=== PATIENT | female | born 1995 | race Caucasian/White ===

== ENCOUNTER 2017-04-10 21:02 | Emergency (ER) | payer OTHER ==
[~2017-04-10] VITALS: Ht 170.2 cm; Wt 62.9 kg
[~2017-04-10 21:02] MED LIST: BCPILLS PO
[2017-04-10 21:10] VITALS: TEMP 36.7; Ht 170.2 cm; Wt 62.9 kg
[2017-04-10] MEDS ORDERED: HYDROCODONE/ACETAMOPHEN 5/325MG TAB PO ONE (21:45)
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
[2017-04-10] MEDS ORDERED: CYCL10TA6 PO (22:42)
[2017-04-10] MEDS ORDERED: HYDR-5688 PO (22:42)
[2017-04-10] MEDS ORDERED: FLEXERIL HOME PACK 10 MG VIAL PO ONE (22:45)
[2017-04-10] MEDS ORDERED: NORCO 5/325MG HOME PACK PO ONE (22:45)
[2017-04-10] MEDS ORDERED: ULT/50 PO (22:52)
[2017-04-10] MEDS ORDERED: TRAMADOL HCL 50 MG HOME PACK PO ONE (23:00)
[2017-04-10 23:04] VITALS: BP 138/89; PULSE 85; O2SAT 98
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
== END 2017-04-10 23:05 | disposition home or self-care (01) ==
LOC: C.EDB 21:05 → C.EDD 23:05
DX: M54.2 Cervicalgia (principal); V43.62XA Car passenger injured in collision with other type car in traffic accident, initial encounter; F17.200 Nicotine dependence, unspecified, uncomplicated; Z88.0 Allergy status to penicillin; Z88.1 Allergy status to other antibiotic agents

== ENCOUNTER 2017-12-27 09:12 | Inpatient (IN) | payer OTHER ==
[~2017-12-27] VITALS: Ht 167.6 cm; Wt 67.3 kg
[2017-12-27] MEDS ORDERED: OXYCODONE/ACETAMINOPHEN 5-325 TAB PO STA (10:23)
[2017-12-27] MEDS ORDERED: KETOROLAC TROMETHAMINE 30 MG/ML VIAL IV STA (10:23)
--- NOTE | 2017-12-27 10:28 | EMERGENCY ROOM VISIT NOTE ---
History Report prepared by Jil: Glenn Fleming Under the Supervision of: Dr. Leatha Chapman D.O. First contact with patient: 09:58 Chief Complaint: INFECTION Stated Complaint: ABCESS ON CHIN Nursing Triage Summary: started with a pimple on wednesday. placed on antibiotics for the past 24 hrs. right side of jaw swollen and painful History of Present Illness The patient is a 22 year old female who presents to the Emergency Room with complaints of a possible infection to her chin that began three days ago. She denies any known past medical history and has never had a skin infection. The patient symptoms began when she tried to pop a pimple on her chin. She fell asleep for some time and when she woke up, the right of her face was swollen. The area to her chin and right lower face then felt quite hard. She then began to experience pain to the area. She is also having pain upon swallowing. She went to [facility] and was placed on Keflex. She has been taking Ibuprofen as well to try to control her pain. She denies any fevers, chills, cough, or sore throat. Source of History: patient Onset: three days ago Position: other (Chin) Symptom Intensity: Possible Quality: other (Infection) Timing: constant Associated Symptoms: No fevers, No chills, No sorethroat, No cough Note: She is experiencing right sided lower facial swelling with pain to her chin and this area. She is having pain upon swallowing. Review of Systems See HPI for pertinent positives & negatives. A total of 10 systems reviewed and were otherwise negative. Past Medical & Surgical Medical Problems: (1) Anxiety (2) Depression No chronic past medical history Family History Patient reports no known family medical history. Social History Smoking Status: Current Some Day Smoker Smokeless Tobacco Use: No Alcohol Use: occasionally Drug Use: none Marital Status: single Housing Status: lives with family Current/Historical Medications Scheduled Cephalexin Monohydrate (Keflex), 500 MG PO TID Duloxetine Hcl (Cymbalta), 60 MG PO QAM Norgestimate-Ethinyl Estradiol (Ortho Tri-Cyclen Lo), 1 TAB PO DAILY Sulfa/Trimethoprim (Bactrim Ds 800MG/160MG), 1 TAB PO BID Allergies Coded Allergies: Amoxicillin (Unverified Allergy, Intermediate, rash, 12/27/17) Penicillins (Unverified Allergy, Mild, 12/27/17) Hydrocodone (Verified Allergy, Unknown, rash/itchy, 12/27/17) Physical Exam Vital Signs Date Time Temp Pulse Resp B/P (MAP) Pulse Ox O2 Delivery O2 Flow Rate FiO2 12/27/17 13:37 76 16 150/90 98 Room Air 12/27/17 11:05 76 16 136/95 98 Room Air 12/27/17 09:16 36.7 102 18 126/88 96 Room Air Physical Exam HEENT: Head - normocephalic and atraumatic. Diffuse aches. There is an infected carbuncle to the right chin with surrounding cellulitis extending over the anterior neck. Pupils are equal, round, and reactive to light. Extraocular eye muscles are intact, and sclera are anicteric. Ears - normal TMs. Nose - moist nasal mucosa without discharge. Mouth - moist buccal mucosa. Oropharynx is nonerythematous and there is no tonsillar exudate or edema noted. Neck: Supple with fullness to the submental region; no JVD, nuchal rigidity, cervical lymphadenopathy. Heart: Regular rate and rhythm. There is a normal S1 and S2 with no murmurs, clicks, or gallops appreciated. Lungs: Clear to auscultation bilaterally with no wheezes, rales, or rhonchi. Abdomen: Soft, completely nontender, nondistended, with good bowel sounds. There are no palpable pulsatile masses or hepatosplenomegaly. There is no guarding, rigidity, or rebound noted. Extremities: No evidence of cyanosis, clubbing, or edema. There are easily palpable peripheral pulses. Skin: warm and dry with good turgor and no rashes. Medical Decision & Procedures ER Provider Diagnostic Interpretation: Radiology results as stated below per my review and the radiologist's interpretation: SOFT TISSUE NECK WITH HISTORY: 22 years-old Female eval for ludwigs - please go up through chin acute chest and swelling with mandibular abscess COMPARISON: Cervical spine CT 04/10/2017 TECHNIQUE: Multiple axial CT images of the soft tissues of the neck were obtained following the intravenous administration of 94 mL Optiray 320 IV contrast. A dose lowering technique was used consistent with the principals of ALARA. FINDINGS: There is mild to moderate sob mental and right mandibular subcutaneous edema with skin thickening with ill-defined low attenuating collection measuring 2.2 x 1.5 cm adjacent to the right parasymphyseal mandible nicely seen on image 51 series 2 without well-defined ray or opaque foreign body. There is mild subcutaneous edema tracking along the platysma musculature with minimal edema of the submandibular region. No significant edema within the sublingual space. No narrowing of the airway identified. Mildly prominent level 1 lymph nodes measure up to 9 mm in short axis. Mildly prominent level 2 lymph nodes are also seen and likely on a reactive basis. The bilateral submandibular and parotid glands are within normal limits. The nasopharynx, oral pharynx and hypopharynx appear patent. The vallecula and piriform sinuses appear patent. The glottis and subglottic airway appear normal. Thyroid is homogeneous. No parapharyngeal abscess. Lung apices are clear. Image intracranial structures are unremarkable. Bones appear intact. Mastoid air cells are clear. No significant paranasal sinus disease. No large periapical cysts or dental abscess identified. IMPRESSION: 1. 2.2 x 1.5 cm ill-defined low attenuating collection adjacent to the right parasymphyseal mandible suggests phlegmon or developing abscess without well-defined ray. Mild to moderate associated cellulitis of the right mandibular and submental tissues with mild edema tracking along the submandibular space. No significant mass effect or sublingual edema. 2. Mildly prominent level 1 and level 2 lymph nodes are likely on a reactive basis. 3. No large periapical cysts or dental abscess identified. The above report was generated using voice recognition software. It may contain grammatical, syntax or spelling errors. Electronically signed by: Pranay Whitmore M.D. 12/27/2017 12:19 PM Dictated Date/Time: 12/27/2017 12:11 PM Laboratory Results 12/27/17 10:55 Red Blood Count 4.21, Mean Corpuscular Volume 94.8, Mean Corpuscular Hemoglobin 32.3, Mean Corpuscular Hemoglobin Concent 34.1, Mean Platelet Volume 11.2, Neutrophils (%) (Auto) 74.3, Lymphocytes (%) (Auto) 15.9, Monocytes (%) (Auto) 5.1, Eosinophils (%) (Auto) 3.9, Basophils (%) (Auto) 0.5, Neutrophils # (Auto) 9.06, Lymphocytes # (Auto) 1.94, Monocytes # (Auto) 0.62, Eosinophils # (Auto) 0.47, Basophils # (Auto) 0.06 12/27/17 10:55 Test 12/27/17 10:55 12/27/17 11:06 White Blood Count 12.19 K/uL (4.8-10.8) Red Blood Count 4.21 M/uL (4.2-5.4) Hemoglobin 13.6 g/dL (12.0-16.0) Hematocrit 39.9 % (37-47) Mean Corpuscular Volume 94.8 fL (80-100) Mean Corpuscular Hemoglobin 32.3 pg (25-34) Mean Corpuscular Hemoglobin Concent 34.1 g/dl (32-36) Platelet Count 244 K/uL (130-400) Mean Platelet Volume 11.2 fL (7.4-10.4) Neutrophils (%) (Auto) 74.3 % Lymphocytes (%) (Auto) 15.9 % Monocytes (%) (Auto) 5.1 % Eosinophils (%) (Auto) 3.9 % Basophils (%) (Auto) 0.5 % Neutrophils # (Auto) 9.06 K/uL (1.4-6.5) Lymphocytes # (Auto) 1.94 K/uL (1.2-3.4) Monocytes # (Auto) 0.62 K/uL (0.11-0.59) Eosinophils # (Auto) 0.47 K/uL (0-0.5) Basophils # (Auto) 0.06 K/uL (0-0.2) RDW Standard Deviation 42.0 fL (36.4-46.3) RDW Coefficient of Variation 12.4 % (11.5-14.5) Immature Granulocyte % (Auto) 0.3 % Immature Granulocyte # (Auto) 0.04 K/uL (0.00-0.02) Anion Gap 9.0 mmol/L (3-11) Est Creatinine Clear Calc Drug Dose 100.7 ml/min Estimated GFR () 117.7 Estimated GFR (Non- 101.6 BUN/Creatinine Ratio 15.5 (10-20) Calcium Level 9.4 mg/dl (8.5-10.1) Bedside Lactic Acid Venous 0.91 mmol/L (0.90-1.70) Laboratory results per my review. Medications Administered Medications (Trade) Dose Ordered Sig/Cheryl Route Start Time Stop Time Status Last Admin Dose Admin Ketorolac Tromethamine (Toradol Inj) 30 mg NOW STAT IV 12/27/17 10:23 12/27/17 10:26 DC 12/27/17 11:29 30 MG Oxycodone/ Acetaminophen (Percocet 5-325mg Tab) 1 tab NOW STAT PO 12/27/17 10:23 12/27/17 10:26 DC 12/27/17 11:29 1 TAB Vancomycin HCl 1000 mg/Sodium Chloride 270 ml @ 125 mls/hr NOW STAT IV 12/27/17 12:38 12/27/17 14:47 DC 12/27/17 12:52 125 MLS/HR Hydromorphone HCl (Dilaudid Inj) 0.5 mg NOW STAT IV 12/27/17 12:52 12/27/17 12:54 DC 12/27/17 13:03 0.5 MG Procedure Oxycodone/Acetaminophen 1 tab PO Toradol Inj 30 mg IV Vancomycin HCl 1000 mg/Sodium Chloride 270 ml @ 125 mls/hr IV Dilaudid Inj 0.5 mg IV ED Course 0958: Past medical records reviewed. The patient was evaluated in room C8. A complete history and physical exam was performed. A septic protocol was performed. The patient went for CT scan and of the soft tissues of the neck up through the chin. 1023: Ordered Oxycodone/Acetaminophen 1 tab PO, Toradol Inj 30 mg IV. 1238: Ordered Vancomycin HCl 1000 mg/Sodium Chloride 270 ml @ 125 mls/hr IV 1246: I reevaluated the patient at this time. She is still having pain. I will order her pain medications. She is receiving her Vancomycin. 1252: Ordered Dilaudid Inj 0.5 mg IV 1257: Upon reevaluation, the patient is feeling somewhat better. I discussed findings and results with her. She verbalized agreement of the treatment plan. I spoke with Sharon Marcus PA-C of the [facility]. The patient will be evaluated for further management and care. 1350: Upon reevaluation, the patient has started to feel mildly itchy after receiving the Dilaudid. Medical Decision The patient is a 22 year old female who presents to the ED with a possible infection to her chin. Differential diagnosis includes facial abscess, facial cellulitis, Xu's angina, neck abscess, and wound infection. Laboratory Results: White blood cell count 12.1, stable H&H, lactic acid 0.9, normal renal function and glucose. This is a 22-year-old female patient presents to the emergency department with a wound infection on her chin. The patient suffers from acne and apparently tried to pop a pimple. It became quite painful with some surrounding erythema and swelling through the right side of her face. She saw her PCP and they started her on Bactrim and Keflex but the symptoms have worsened. She now has erythema over the submental region and anterior neck with significant pain in that area. CT scan shows a small fluid collection on the chin but edema and erythema suggesting cellulitis. There is no obvious fluid collection in the submental region. I felt the patient has got outpatient oral antibiotics. She will be treated with IV vancomycin. Discussed the case with the hospitalist group and they will evaluate for further management. Medication Reconcilliation Current Medication List: was personally reviewed by me Blood Pressure Screening Patient's blood pressure: Normal blood pressure Blood pressure disposition: Did not require urgent referral Consults Time Called: 1250 Consulting Physician: Sharon Engel Hospitalist Returned Call: [phone] Discussed the patient's case. The patient will be evaluated for further management. Impression Primary Impression: Facial cellulitis Additional Impression: Facial abscess Scribe Attestation The scribe's documentation has been prepared under my direction and personally reviewed by me in its entirety. I confirm that the note above accurately reflects all work, treatment, procedures, and medical decision making performed by me. Departure Information Dispostion Being Evaluated By Hospitalist Referrals Collin Arriola M.D. (PCP) Patient Instructions My [facility] Problem Qualifiers
[2017-12-27] MEDS ORDERED: SULF800T23 PO (10:32)
[2017-12-27] MEDS ORDERED: DULO60CA44 PO (10:32)
[2017-12-27] MEDS ORDERED: CEPH500C PO (10:32)
[2017-12-27] MEDS ORDERED: OPTIRAY 320 IV PRN (10:45)
[2017-12-27 11:19] LABS: BASO % 0.5 %; BASO ABS # 0.06 K/uL (0-0.2); EOS % 3.9 %; EOS ABS # 0.47 K/uL (0-0.5); HEMATOCRIT 39.9 % (37-47); HEMOGLOBIN 13.6 g/dL (12.0-16.0); IG# 0.04 K/uL (0.00-0.02); LYMPH % 15.9 %; LYMPH ABS # 1.94 K/uL (1.2-3.4); MEAN CELL VOLUME 94.8 fL (80-100); MEAN CORPUSCULAR HEMOGLOBIN 32.3 pg (25-34); MEAN CORPUSCULAR HGB CONC 34.1 g/dl (32-36); MEAN PLATELET VOLUME 11.2 fL (7.4-10.4); MONO % 5.1 %; MONO ABS # 0.62 K/uL (0.11-0.59); NEUT % 74.3 %; NEUT ABS # 9.06 K/uL (1.4-6.5); PLATELET COUNT 244 K/uL (130-400); RED CELL DISTRIBUTION WIDTH CV 12.4 % (11.5-14.5); WHITE BLOOD COUNT 12.19 K/uL (4.8-10.8)
[2017-12-27 11:38] LABS: CALCIUM 9.4 mg/dl (8.5-10.1); CREATININE 0.82 mg/dl (0.60-1.20); POTASSIUM 4.3 mmol/L (3.5-5.1)
--- NOTE | 2017-12-27 12:21 | DIAGNOSTIC IMAGING REPORT ---
SOFT TISSUE NECK WITH HISTORY: 22 years-old Female eval for ludwigs - please go up through chin acute chest and swelling with mandibular abscess COMPARISON: Cervical spine CT 04/10/2017 TECHNIQUE: Multiple axial CT images of the soft tissues of the neck were obtained following the intravenous administration of 94 mL Optiray 320 IV contrast. A dose lowering technique was used consistent with the principals of ALARA. FINDINGS: There is mild to moderate sob mental and right mandibular subcutaneous edema with skin thickening with ill-defined low attenuating collection measuring 2.2 x 1.5 cm adjacent to the right parasymphyseal mandible nicely seen on image 51 series 2 without well-defined ray or opaque foreign body. There is mild subcutaneous edema tracking along the platysma musculature with minimal edema of the submandibular region. No significant edema within the sublingual space. No narrowing of the airway identified. Mildly prominent level 1 lymph nodes measure up to 9 mm in short axis. Mildly prominent level 2 lymph nodes are also seen and likely on a reactive basis. The bilateral submandibular and parotid glands are within normal limits. The nasopharynx, oral pharynx and hypopharynx appear patent. The vallecula and piriform sinuses appear patent. The glottis and subglottic airway appear normal. Thyroid is homogeneous. No parapharyngeal abscess. Lung apices are clear. Image intracranial structures are unremarkable. Bones appear intact. Mastoid air cells are clear. No significant paranasal sinus disease. No large periapical cysts or dental abscess identified. IMPRESSION: 1. 2.2 x 1.5 cm ill-defined low attenuating collection adjacent to the right parasymphyseal mandible suggests phlegmon or developing abscess without well-defined ray. Mild to moderate associated cellulitis of the right mandibular and submental tissues with mild edema tracking along the submandibular space. No significant mass effect or sublingual edema. 2. Mildly prominent level 1 and level 2 lymph nodes are likely on a reactive basis. 3. No large periapical cysts or dental abscess identified. The above report was generated using voice recognition software. It may contain grammatical, syntax or spelling errors. Electronically signed by: Pranay Whitmore M.D. 12/27/2017 12:19 PM Dictated Date/Time: 12/27/2017 12:11 PM
[2017-12-27] MEDS ORDERED: VANCOMYCIN INJ 1,000 MG in SODIUM CHLORIDE 0.9% 250ML 250 ML IV STA (12:38)
[2017-12-27] MEDS ORDERED: VANCOMYCIN CONSULT ACTIVE PRN ×2 (12:45→13:54)
[2017-12-27] MEDS ORDERED: HYDROmorphone INJ 0.5 MG/0.5 ML SYR IV STA (12:52)
[2017-12-27] MEDS ORDERED: NORGTAB39 PO (13:54)
[2017-12-27] MEDS ORDERED: ONDANSETRON INJ 2 MG/ML 2 ML VIAL IV PRN (14:00)
[2017-12-27] MEDS ORDERED: DiphenhydrAMINE HCL 50 MG/ML VIAL IV STA (14:05)
--- NOTE | 2017-12-27 14:18 | History and Physical ---
History & Physical Date & Time of Service: Dec 27, 2017 at 14:13 Chief Complaint: Abcess On Chin Primary Care Physician: Collin Arriola M.D. History of Present Illness Source: patient, parent (at bedside), clinic records, hospital records This is a 22yo F with a PMH of depression and anxiety who presents with worsening facial swelling on chin x 3 days. Patient popped a pimple on her chin Wednesday evening and then went to sleep for a few hours. Woke up with right sided facial swelling along her chin and took ibuprofen. Continued to experience facial swelling and throbbing pain on Wednesday and went to see [facility] on Wednesday, where she was diagnosed with facial abscess/cellulitis and started on keflex and bactrim. Continued to experience facial pain and worsening facial swelling overnight, so came to ED for further evaluation. Denies history of skin infections. Denies fever, chills, lightheadedness, headache, visual changes, sore throat, CP, SOB, abdominal pain, nausea, vomiting , dysuria, constipation or diarrhea. Has some pain with swallowing but has maintained her normal PO intake. Denies any respiratory distress 2/2 swelling. Past Medical/Surgical History Medical Problems: (1) Anxiety Status: Chronic (2) Depression Status: Chronic Family History Patient reports no known family medical history. Social History Smoking Status: Current Some Day Smoker (Smokes 1-2 cigarettes per week. ) Smokeless Tobacco Use: No Alcohol Use: occasionally Drug Use: none Marital Status: single Housing status: lives with roommate Occupational Status: [employer] student Multi-Drug Resistant Organisms History of MDRO: No Allergies Coded Allergies: Amoxicillin (Unverified Allergy, Intermediate, rash, 12/27/17) Penicillins (Unverified Allergy, Mild, 12/27/17) Hydrocodone (Verified Allergy, Unknown, rash/itchy, 12/27/17) Home Medications Scheduled Cephalexin Monohydrate (Keflex), 500 MG PO TID Duloxetine Hcl (Cymbalta), 60 MG PO QAM Norgestimate-Ethinyl Estradiol (Ortho Tri-Cyclen Lo), 1 TAB PO DAILY Sulfa/Trimethoprim (Bactrim Ds 800MG/160MG), 1 TAB PO BID Review of Systems Ten systems reviewed and negative except as noted in the HPI. Physical Exam Vital Signs Date Time Temp Pulse Resp B/P (MAP) Pulse Ox O2 Delivery O2 Flow Rate FiO2 12/27/17 13:37 76 16 150/90 98 Room Air 12/27/17 11:05 76 16 136/95 98 Room Air 12/27/17 09:16 36.7 102 18 126/88 96 Room Air General Appearance: WD/WN, no apparent distress, + pertinent finding (Sitting upright, watching TV. ) Head: normocephalic, atraumatic Eyes: normal inspection, PERRL, sclerae normal ENT: hearing grossly normal, pharynx normal, + trismus (Unable to open mouth fully 2/2 facial swelling) Neck: supple, thyroid normal, trachea midline Respiratory/Chest: chest non-tender, lungs clear, normal breath sounds, no respiratory distress, no accessory muscle use Cardiovascular: regular rate, rhythm, no murmur, normal peripheral pulses Abdomen/GI: non tender, soft Back: normal inspection Extremities/Musculoskelatal: normal inspection, no calf tenderness, no pedal edema, normal range of motion Neurologic/Psych: no motor/sensory deficits, alert, normal mood/affect, oriented x 3 Skin: normal color, warm/dry, no rash, + pertinent finding (Presence of an indurated lesion on R side of chin with surrounding erythema/edema to submandibular region. Presence of scab. summer clerk intact. ) Diagnostics Laboratory Results Results Past 24 Hours Test 12/27/17 10:55 12/27/17 11:06 12/27/17 13:46 Range/Units White Blood Count 12.19 4.8-10.8 K/uL Red Blood Count 4.21 4.2-5.4 M/uL Hemoglobin 13.6 12.0-16.0 g/dL Hematocrit 39.9 37-47 % Mean Corpuscular Volume 94.8 80-100 fL Mean Corpuscular Hemoglobin 32.3 25-34 pg Mean Corpuscular Hemoglobin Concent 34.1 32-36 g/dl Platelet Count 244 130-400 K/uL Mean Platelet Volume 11.2 7.4-10.4 fL Neutrophils (%) (Auto) 74.3 % Lymphocytes (%) (Auto) 15.9 % Monocytes (%) (Auto) 5.1 % Eosinophils (%) (Auto) 3.9 % Basophils (%) (Auto) 0.5 % Neutrophils # (Auto) 9.06 1.4-6.5 K/uL Lymphocytes # (Auto) 1.94 1.2-3.4 K/uL Monocytes # (Auto) 0.62 0.11-0.59 K/uL Eosinophils # (Auto) 0.47 0-0.5 K/uL Basophils # (Auto) 0.06 0-0.2 K/uL RDW Standard Deviation 42.0 36.4-46.3 fL RDW Coefficient of Variation 12.4 11.5-14.5 % Immature Granulocyte % (Auto) 0.3 % Immature Granulocyte # (Auto) 0.04 0.00-0.02 K/uL Sodium Level 137 136-145 mmol/L Potassium Level 4.3 3.5-5.1 mmol/L Chloride Level 101 98-107 mmol/L Carbon Dioxide Level 27 21-32 mmol/L Anion Gap 9.0 3-11 mmol/L Blood Urea Nitrogen 13 7-18 mg/dl Creatinine 0.82 0.60-1.20 mg/dl Est Creatinine Clear Calc Drug Dose 100.7 ml/min Estimated GFR () 117.7 Estimated GFR (Non- 101.6 BUN/Creatinine Ratio 15.5 10-20 Random Glucose 96 70-99 mg/dl Calcium Level 9.4 8.5-10.1 mg/dl Bedside Lactic Acid Venous 0.91 0.90-1.70 mmol/L Microbiology Results 12/27/17 Blood Culture, Received Pending 12/27/17 Blood Culture, Received Pending Diagnostic Radiology CT soft tissue neck: IMPRESSION: 1. 2.2 x 1.5 cm ill-defined low attenuating collection adjacent to the right parasymphyseal mandible suggests phlegmon or developing abscess without well-defined ray. Mild to moderate associated cellulitis of the right mandibular and submental tissues with mild edema tracking along the submandibular space. No significant mass effect or sublingual edema. 2. Mildly prominent level 1 and level 2 lymph nodes are likely on a reactive basis. 3. No large periapical cysts or dental abscess identified. Impression Assessment and Plan This is a 22yo F with a PMH of depression and anxiety who presents with worsening facial swelling on chin x 3 days. Small facial abscess/cellulitis: -CT soft tissue neck with 2.2 x 1.5 cm ill-defined low attenuating collection adjacent to the right parasymphyseal mandible suggests phlegmon or developing abscess without well-defined ray. Mild to moderate associated cellulitis of the right mandibular and submental tissues with mild edema tracking along the submandibular space. No significant mass effect or sublingual edema. -Leukocytosis of 12.19. VS stable. -No respiratory distress 2/2 swelling -1 day of PO keflex and bactrim completed SENIOR INVESTIGATOR -IV vanc initiated in ED. Plan to continue -Given Benadryl for side effect of itching. Plan to monitor and switch abx if needed -I&D not indicated at this time. Monitor -Toradol for pain Anxiety/depression: -Stable -Continue home dose Cymbalta DVT Ppx: tenzin whitley Code status: FULL PCP: Flako Dispo: Admitted to [facility]. Plan to return home once medically stable. Patient seen in collaboration with Dr. Ortiz. Please see addendum. ADDENDUM: This is a 22 year old female with a PMH of depression; presents with infection on the chin. States she had a pimple on her chin and she popped it. She was seen by urgent care and was prescribed Keflex + Bactrim for cellulitis - used this for one day. Presented here due to no improvement; CT suggests developing abscess and cellulitis. Started on Vancomycin in the ED. Plan: continue IV Vancomycin. Toradol PRN for pain. IVFs if no improvement consider maxillofacial specialist Level of Care Med/Surg Resuscitation Status FULL RESUSCITATION VTE Prophylaxis VTE Risk Assessment Done? Y/N: Yes Risk Level: Low Given or contraindicated: T.E.D. Stockings
[2017-12-27] MEDS ORDERED: DULOXETINE HCL 60 MG CAP PO ONE (15:15)
--- NOTE | 2017-12-27 15:31 | Pharmacy Progress Note ---
Pharmacy Abx Initial Consult Date of Service Dec 27, 2017. Pharmacy Dosing Scope Date of Consult: 12/27/17 Consultation requested by: JOCY Mario Pharmacy is consulted to initiate vancomycin IV dosing therapy, order appropriate labs and adjust drug dose/frequency. Subjective The patient is a 22 year old female admitted on Dec 27, 2017 at 13:49. Objective Height (Feet): 5 Height (Inches): 6.00 Weight (Kilograms): 67.300 Vital Signs (Past 12Hrs) Vital Signs Past 12 Hours Date Time Temp Pulse Resp B/P (MAP) Pulse Ox O2 Delivery O2 Flow Rate FiO2 12/27/17 13:37 76 16 150/90 98 Room Air 12/27/17 11:05 76 16 136/95 98 Room Air 12/27/17 09:16 36.7 102 18 126/88 96 Room Air Lab Results (24Hrs) Laboratory Tests (24 Hours) Test 12/27/17 10:55 White Blood Count 12.19 K/uL (4.8-10.8) H Red Blood Count 4.21 M/uL (4.2-5.4) Hemoglobin 13.6 g/dL (12.0-16.0) Hematocrit 39.9 % (37-47) Mean Corpuscular Volume 94.8 fL (80-100) Mean Corpuscular Hemoglobin 32.3 pg (25-34) Mean Corpuscular Hemoglobin Concent 34.1 g/dl (32-36) Platelet Count 244 K/uL (130-400) Mean Platelet Volume 11.2 fL (7.4-10.4) H Neutrophils (%) (Auto) 74.3 % Lymphocytes (%) (Auto) 15.9 % Monocytes (%) (Auto) 5.1 % Eosinophils (%) (Auto) 3.9 % Basophils (%) (Auto) 0.5 % Neutrophils # (Auto) 9.06 K/uL (1.4-6.5) H Lymphocytes # (Auto) 1.94 K/uL (1.2-3.4) Monocytes # (Auto) 0.62 K/uL (0.11-0.59) H Eosinophils # (Auto) 0.47 K/uL (0-0.5) Basophils # (Auto) 0.06 K/uL (0-0.2) Micro Results Date/Time Source Procedure Growth Status 12/27/17 11:00 Blood Blood Culture Pending Received 12/27/17 10:55 Blood Blood Culture Pending Received Risk Factors for Resistance * Antimicrobial use within the last 90 days - failed recent Keflex and Bactrim therapy Assessment & Plan Assessment 22 year old female admitted for worsening facial swelling on chin x 3 days. She had popped a pimple, which worsened, so then went to [facility] and started on Bactrim + Keflex. Vancomycin is now being started for worsening swelling and possible abscess Plan Vancomycin IV * Est PK parameters: Vd 0.7 L/kg, Melo 0.087 hr-1, t1/2 8 hrs * Loading dose: 1000 mg (15 mg/kg) * Maintenance dose: 1000 mg IV (15 mg/kg) every 8 hours - will start 5 hours after load since it was not a complete loading dose * Goal trough level for facial abscess/cellulitis : ~15 mcg/mL * Trough level ordered for 12/28/17 prior to the 5th overall dose Pharmacy will continue to follow and will adjust dose/frequency as necessary. Thank you.
[2017-12-27] MEDS: KETOROLAC TROMETHAMINE 30 MG/ML VIAL IV PRN ×2 (15:35→23:39)
[2017-12-27 16:00] VITALS: BP 133/89; PULSE 93; TEMP 36.6; O2SAT 98
[2017-12-27 16:31] VITALS: BP 133/89; PULSE 93; TEMP 36.6; O2SAT 98; Ht 167.6 cm; Wt 67.3 kg
[2017-12-27] MEDS: SODIUM CHLORIDE 0.9% 1000ML 1,000 ML IV SCH (16:51)
[2017-12-27] MEDS: VANCOMYCIN INJ 1,000 MG in SODIUM CHLORIDE 0.9% 250ML 250 ML IV SCH (17:55)
[2017-12-27] MEDS: OXYCODONE/ACETAMINOPHEN 5-325 TAB PO PRN ×2 (17:55→23:39)
[2017-12-27] MEDS: ACETAMINOPHEN 325 MG TAB PO PRN (19:40)
[2017-12-27] MEDS ORDERED: INFLUENZA ADMINISTRATION CHARGE ONE (21:00)
[2017-12-27] MEDS: MoRPHine SULFATE 2 MG/ML CARP IV PRN (21:00)
[2017-12-27] MEDS ORDERED: INFLUENZA VIRUS QUAD VACCINE 0.5 ML SYR IM. ONE (21:00)
[2017-12-28 00:07] VITALS: BP 139/95; PULSE 77; TEMP 36.8; O2SAT 96
[2017-12-28] MEDS: VANCOMYCIN INJ 1,000 MG in SODIUM CHLORIDE 0.9% 250ML 250 ML IV SCH ×4 (01:41→23:57)
[2017-12-28] MEDS ORDERED: NURSING DECISION MEDICATION ORDER SCH (02:00)
[2017-12-28] MEDS: MoRPHine SULFATE 2 MG/ML CARP IV PRN ×5 (03:21→21:27)
[2017-12-28] MEDS: OXYCODONE/ACETAMINOPHEN 5-325 TAB PO PRN ×4 (06:13→23:53)
[2017-12-28 06:44] LABS: HEMATOCRIT 36.2 % (37-47); HEMOGLOBIN 12.4 g/dL (12.0-16.0); MEAN CELL VOLUME 94.5 fL (80-100); MEAN CORPUSCULAR HEMOGLOBIN 32.4 pg (25-34); MEAN CORPUSCULAR HGB CONC 34.3 g/dl (32-36); MEAN PLATELET VOLUME 11.2 fL (7.4-10.4); PLATELET COUNT 174 K/uL (130-400); RED CELL DISTRIBUTION WIDTH CV 12.1 % (11.5-14.5); RED CELL DISTRIBUTION WIDTH SD 41.3 fL (36.4-46.3); WHITE BLOOD COUNT 9.05 K/uL (4.8-10.8)
[2017-12-28 07:32] VITALS: BP 130/94; PULSE 82; TEMP 36.4; O2SAT 96
[2017-12-28 07:35] LABS: CALCIUM 7.9 mg/dl (8.5-10.1); CREATININE 0.63 mg/dl (0.60-1.20)
[2017-12-28] MEDS: SODIUM CHLORIDE 0.9% 1000ML 1,000 ML IV SCH ×2 (07:51→18:12)
[2017-12-28] MEDS ORDERED: NORGESTIMATE ETHINYL ESTRADIOL PO SCH (08:00)
[2017-12-28] MEDS: DULOXETINE HCL 60 MG CAP PO SCH (10:16)
[2017-12-28] MEDS: KETOROLAC TROMETHAMINE 30 MG/ML VIAL IV PRN (10:17)
[2017-12-28] MEDS ORDERED: MUPIROCIN 2% OINT 22 GM TUBE EXT ONE (14:00)
[2017-12-28 14:53] VITALS: BP 134/90; PULSE 88; TEMP 36.7; O2SAT 98
[2017-12-28] MEDS ORDERED: VANCOMYCIN TROUGH ONE (17:30)
--- NOTE | 2017-12-28 19:20 | Progress Note ---
Progress Note Date of Service Dec 28, 2017. Progress Note Subjective: patient's chin induration has been draining, appears to be expressing dried pus and skin debris. Patient reports facial swelling has decreased compared to yesterday General Appearance: WD/WN, no apparent distress Head: normocephalic, atraumatic Eyes: normal inspection, PERRL, sclerae normal ENT: hearing grossly normal, pharynx normal, able to open mouth, indurated lesion on R side of chin with surrounding erythema/edema to submandibular region Neck: supple, thyroid normal, trachea midline Respiratory/Chest: chest non-tender, lungs clear, normal breath sounds, no respiratory distress, no accessory muscle use Cardiovascular: regular rate, rhythm, no murmur, normal peripheral pulses Abdomen/GI: non tender, soft Back: normal inspection Extremities/Musculoskelatal: normal inspection, no calf tenderness, no pedal edema, normal range of motion Neurologic/Psych: no motor/sensory deficits, alert, normal mood/affect, oriented x 3 Assessment and Plan This is a 22yo F with a PMH of depression and anxiety who presents with worsening facial swelling on chin x 3 days and on admission the CT scan with 2.2 x 1.5 cm ill-defined low attenuating collection adjacent to the right parasymphyseal mandible Patient currently on Vancomycin since hospital admission - f/u ED blood cultures Today, patient's induration started draining without deliberate I&D, pending wound culture Topical Bacitracin to be applied on chin and dressing to be placed over induration Ketorolac / Morphine / Percocet for pain Anxiety/depression stable -Continue home dose Cymbalta DVT Ppx: tenzin whitley Code status: FULL code PCP: Flako
--- NOTE | 2017-12-28 20:41 | Pharmacy Progress Note ---
Pharmacy Antibiotic Prog Note Date of Service Dec 28, 2017. Subjective The patient is currently receiving vancomycin 1gm iv q 8hrs The patient is currently on day #2 of IV therapy. Objective Height (Feet): 5 Height (Inches): 6.00 Weight (Kilograms): 67.300 Levels: Item Value Date Time Vancomycin Level Trough 8.9 mcg/ml 12/28/17 8733 Lab Results (24hrs): Test 12/28/17 06:29 12/28/17 07:45 12/28/17 17:33 White Blood Count 9.05 K/uL (4.8-10.8) Red Blood Count 3.83 M/uL (4.2-5.4) Hemoglobin 12.4 g/dL (12.0-16.0) Hematocrit 36.2 % (37-47) Mean Corpuscular Volume 94.5 fL (80-100) Mean Corpuscular Hemoglobin 32.4 pg (25-34) Mean Corpuscular Hemoglobin Concent 34.3 g/dl (32-36) RDW Standard Deviation 41.3 fL (36.4-46.3) RDW Coefficient of Variation 12.1 % (11.5-14.5) Platelet Count 174 K/uL (130-400) Mean Platelet Volume 11.2 fL (7.4-10.4) Sodium Level 136 mmol/L (136-145) Potassium Level mmol/L (3.5-5.1) 3.7 mmol/L (3.5-5.1) Chloride Level 107 mmol/L (98-107) Carbon Dioxide Level 26 mmol/L (21-32) Anion Gap 3.0 mmol/L (3-11) Blood Urea Nitrogen 9 mg/dl (7-18) Creatinine 0.63 mg/dl (0.60-1.20) Est Creatinine Clear Calc Drug Dose 131.0 ml/min Estimated GFR () 147.6 Estimated GFR (Non- 127.3 BUN/Creatinine Ratio 14.1 (10-20) Random Glucose 94 mg/dl (70-99) Calcium Level 7.9 mg/dl (8.5-10.1) Vancomycin Level Trough 8.9 mcg/ml (SEE COMMENT) Assessment & Plan Patient on vancomycin for facial abscess/cellulitis - worsened on keflex/ bactrim. BC x 2 are pending, wound culture pending. Vancomycin * Trough level came back subtherapeutic at ~9 mcg/ml (goal ~15-20 mcg/ml for abscess) * Will adjust frequency of vancomycin to 1000 mg iv q 6 hrs to achieve a higher trough * Will plan to recheck trough prior to the 1800 dose on - to ensure therapeutic Pharmacy will continue to follow and will adjust dose/frequency as necessary. Thank you
[2017-12-28] MEDS: MUPIROCIN 2% OINT 22 GM TUBE EXT SCH (20:56)
[2017-12-28 23:15] VITALS: BP 128/92; PULSE 83; TEMP 36.5; O2SAT 93
--- NOTE | 2017-12-29 03:02 | Progress Note ---
Progress Note Date of Service Dec 29, 2017. Progress Note 0300: called by nurse regarding worsening sore throat and difficulty swallowing with an extension of her pain down her anterior neck. On exam her vitals are stable and she is afebrile, mentating appropriately and not in distress. Her pharynx is not acute and not erythematous. She has a scabbed over wound on her chin anteriorly, which is currently not draining. She is unable to tolerate palpation of her submandibular area and cervical area 2/2 pain. There is some splotchy areas of redness on her neck but no extension of the erythema surrounding the wound on her chin. It has the appearance that she has been scratching at it as opposed to cellulitis. The increased pain in the setting of a possible developing abscess in this area two days ago on CT are concerning for a worsening deep space infection. Adding clindamycin to her Vancomycin and consulted Dr. Romero (ENT) for evaluation and recommendations. Added phenol throat spray and increased her morphine to 2mg IV q4h prn. DO Kane
[2017-12-29] MEDS: CHLORASEPTIC 1.4% SOLN 180 ML BTL MT PRN ×2 (03:10→21:54)
[2017-12-29] MEDS: CLINDAMYCIN IV 600 MG in DEXTROSE 5% 50ML 50 ML IV SCH ×3 (03:39→19:40)
[2017-12-29] MEDS: SODIUM CHLORIDE 0.9% 1000ML 1,000 ML IV SCH ×2 (03:41→21:54)
[2017-12-29] MEDS: MoRPHine SULFATE 2 MG/ML CARP IV PRN ×4 (04:26→20:43)
[2017-12-29] MEDS: VANCOMYCIN INJ 1,000 MG in SODIUM CHLORIDE 0.9% 250ML 250 ML IV SCH ×4 (05:33→23:33)
[2017-12-29 06:05] LABS: BASO % 1.1 %; BASO ABS # 0.07 K/uL (0-0.2); EOS % 7.2 %; EOS ABS # 0.46 K/uL (0-0.5); HEMATOCRIT 35.4 % (37-47); HEMOGLOBIN 12.3 g/dL (12.0-16.0); IG# 0.01 K/uL (0.00-0.02); LYMPH % 28.7 %; LYMPH ABS # 1.83 K/uL (1.2-3.4); MEAN CELL VOLUME 93.9 fL (80-100); MEAN CORPUSCULAR HEMOGLOBIN 32.6 pg (25-34); MEAN CORPUSCULAR HGB CONC 34.7 g/dl (32-36); MEAN PLATELET VOLUME 10.6 fL (7.4-10.4); MONO % 6.8 %; MONO ABS # 0.43 K/uL (0.11-0.59); NEUT ABS # 3.57 K/uL (1.4-6.5); PLATELET COUNT 183 K/uL (130-400); RED CELL DISTRIBUTION WIDTH CV 11.9 % (11.5-14.5); RED CELL DISTRIBUTION WIDTH SD 40.2 fL (36.4-46.3); WHITE BLOOD COUNT 6.37 K/uL (4.8-10.8)
[2017-12-29 06:38] LABS: ALT/SGPT 16 U/L (12-78); BLOOD UREA NITROGEN 6 mg/dl (7-18); CALCIUM 8.5 mg/dl (8.5-10.1); CARBON DIOXIDE 26 mmol/L (21-32); CREATININE 0.57 mg/dl (0.60-1.20); GLUCOSE 88 mg/dl (70-99); POTASSIUM 4.1 mmol/L (3.5-5.1); SODIUM 139 mmol/L (136-145)
[2017-12-29 06:41] LABS: ALKALINE PHOSPHATASE 70 U/L (45-117); AST/SGOT 13 U/L (15-37); TOTAL PROTEIN 6.8 gm/dl (6.4-8.2)
[2017-12-29] MEDS: MUPIROCIN 2% OINT 22 GM TUBE EXT SCH ×2 (07:49→19:43)
[2017-12-29] MEDS: KETOROLAC TROMETHAMINE 30 MG/ML VIAL IV PRN (07:49)
[2017-12-29] MEDS: DULOXETINE HCL 60 MG CAP PO SCH (07:49)
--- NOTE | 2017-12-29 07:57 | ENT CONSULTATION ---
DATE OF CONSULTATION: 12/29/2017 OTOLARYNGOLOGY HEAD AND NECK SURGERY INPATIENT CONSULTATION I have been asked by Dr. 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 She was placed on IV vancomycin and states that she feels "70%" improved overall, but late last night at approximately 02:30 a.m., she developed sore throat in her hypopharyngeal area as well as some neck tightness. The hospitalist, Dr. Middleton went in to see the patient and she did not note any acute changes in her physical examination. She did note some splotchy areas of redness on her neck, but no extension of the erythema surrounding the wound onto her chin and thought that clinically it appeared that she was scratching at her neck as opposed to spread of her cellulitis. The patient had a CT scan of the neck with IV contrast on 12/27/2017, which did show a right parasymphyseal mandibular soft tissue infection with likely phlegmon, but not abscess due to the lack of ring enhancement. There are also some submental and submandibular lymph nodes that were enlarged and likely reactive in nature. The patient has a history of cystic acne and prior to development of this infection, was trying to pop a "pimple." When the patient was first admitted, her white blood cell count was 12.19. Yesterday, it was 6.37. She has been afebrile and her vital signs are stable. She denies any referred otalgia, odynophagia, dysphagia, hoarseness, or unexplained weight loss. ALLERGIES: AMOXICILLIN AND HYDROCODONE. CURRENT MEDICATIONS: Vancomycin; clindamycin, which was just added last night; morphine p.r.n.; Chloraseptic spray p.r.n.; vancomycin; Bactroban ointment; Cymbalta; Percocet; Tylenol p.r.n.; Zofran p.r.n. and Toradol p.r.n. PAST MEDICAL HISTORY: 1. Cystic acne. 2. Anxiety. 3. Depression. PAST SURGICAL HISTORY: None. FAMILY HISTORY: Noncontributory. No bleeding disorders or malignant hyperthermia. 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 She is single. She smokes cigarettes daily, but goes through about 1 pack per week. She drinks alcohol socially. She has used marijuana in the past, but no other illicit drugs. REVIEW OF SYSTEMS: The patient has some right chin pain and discomfort, which has improved since she has been admitted. She had the onset of severe sore throat and neck tightness last night, which also has improved after she received some morphine. She denies referred otalgia, odynophagia, dysphagia, hoarseness, unexplained weight loss, lightheadedness, dizziness, shortness of breath, or chest pain. PHYSICAL EXAMINATION: GENERAL: This is a young adult white female with cystic acne with an obvious raised erythematous right parasymphyseal mandibular soft tissue infection, which appears to have spontaneously drained and there is a crust over the central area and there is some honey colored crust over the region. This is tender to palpation. Bilateral external auditory canals and tympanic membranes are clear. Septum is midline and inferior turbinates are normal. Oral cavity and oropharyngeal examination reveals 2+ cryptic noninflamed tonsils bilaterally. There is no trismus. NECK: The patient's neck does reveal tender level 1 and level 2 lymphadenopathy with no evidence of abscess formation. Also, the erythema overlying her right parasymphyseal mandibular soft tissue infection is not tracking into her neck whatsoever. This is well delineated. There is mild fluctuance over the palpation of the right mandibular area. After administration of topical lidocaine and Afrin to the right nasal cavity, flexible laryngoscopy was performed due to the patient's complaints of hypopharyngeal sore throat as well as progression in the setting of facial infection/abscess. The patient's nasopharynx, oropharynx, hypopharynx and larynx were all normal. There is no evidence of laryngeal edema. She had normal bilateral true vocal fold mobility to the midline. The patient's laboratory examinations and CT scan were all reviewed. IMPRESSION AND RECOMMENDATIONS: A 22-year-old female with right parasymphyseal mandibular soft tissue abscess, which has spontaneously drained and the patient is clinically improving. I agree with addition of clindamycin and if she does not continue to clinically improve, that can be increased from 600 mg IV q. 8 hours to 900 mg IV q. 8 hours. I have added Decadron 10 mg IV q. 8 hours, which should help with the soft tissue swelling and perhaps get this patient clinically improving quicker then without the addition of steroids. I will continue to follow along with you on this patient and if there are any acute changes or if you have any questions, please do not hesitate to contact me. MTDD
[2017-12-29] MEDS: DEXAMETHASONE INJ 10 MG in SYRINGE 0 ML IV SCH ×3 (08:00→23:33)
[2017-12-29 08:06] VITALS: BP 122/86; PULSE 84; TEMP 36.5; O2SAT 97
[2017-12-29] MEDS: OXYCODONE/ACETAMINOPHEN 5-325 TAB PO PRN (13:42)
--- NOTE | 2017-12-29 15:16 | Progress Note ---
Internal Med Progress Note Date of Service: Dec 29, 2017. Provider Documentation: SUBJECTIVE: Patient s/p laryngoscopy evaluation by ENT today as there was concern for increased swelling around neck and chin area. Patient reports that eating is okay. Is breathing on room air and no acute distress OBJECTIVE: General Appearance: no apparent distress Head: normocephalic, atraumatic Eyes: normal inspection, sclerae normal ENT/Face/Neck: hearing grossly normal, pharynx normal, able to open mouth, erythema of the chin with scab from prior drainage, right neck is somewhat tender and not as soft as left neck Respiratory/Chest: chest non-tender, lungs clear, normal breath sounds, no respiratory distress, no accessory muscle use Cardiovascular: regular rate, rhythm, no murmur, normal peripheral pulses Abdomen/GI: non tender, soft Back: normal inspection Extremities/Musculoskelatal: normal inspection, no calf tenderness, no pedal edema, normal range of motion Neurologic/Psych: no motor/sensory deficits, alert, normal mood/affect, oriented x 3 ASSESSMENT & PLAN: 22-year-old female with right parasymphyseal mandibular soft tissue abscess, which has spontaneously drained on 12/28/17 -ED blood cultures 12/27/17 no growth to date -Patient has been on Vancomycin since hospital admission - continue -patient's induration started draining on 12/28/17 spontaneously, wound culture with Staph -Topical Bacitracin to be applied on chin -Clindamycin added on 12/29/17 as 600 mg IV q8 hours for additional bacterial coverage -ENT evaluation 12/29/17: flexible laryngoscopy was performed due to the patient' s complaints of hypopharyngeal sore throat as well as progression in the setting of facial infection/abscess. The patient's nasopharynx, oropharynx, hypopharynx and larynx were all normal. There is no evidence of laryngeal edema. She had normal bilateral true vocal fold mobility to the midline. -as per ENT, if she does not continue to clinically improve, that can be increased from 600 mg IV q. 8 hours to 900 mg IV q. 8 hours. -ENT started Decadron 10 mg IV q. 8 hours on 12/29/17, to help reduce the soft tissue swelling -Ketorolac / Morphine / Percocet for pain Anxiety/depression stable -Continue home dose Cymbalta DVT Ppx: tenzin gutierrez Code status: FULL code PCP: Flako Vital Signs: Date Time Temp Pulse Resp B/P (MAP) Pulse Ox O2 Delivery O2 Flow Rate FiO2 12/29/17 15:18 36.4 90 18 131/83 (99) 98 Room Air 12/29/17 08:06 36.5 84 16 122/86 (98) 97 Room Air 12/29/17 08:00 Room Air 12/29/17 00:00 Room Air 12/28/17 23:15 36.5 83 18 128/92 (104) 93 Room Air 12/28/17 16:20 Room Air Lab Results: Results Past 24 Hours Test 12/28/17 17:33 12/29/17 05:51 Range/Units Vancomycin Level Trough 8.9 SEE COMMENT mcg/ml White Blood Count 6.37 4.8-10.8 K/uL Red Blood Count 3.77 4.2-5.4 M/uL Hemoglobin 12.3 12.0-16.0 g/dL Hematocrit 35.4 37-47 % Mean Corpuscular Volume 93.9 80-100 fL Mean Corpuscular Hemoglobin 32.6 25-34 pg Mean Corpuscular Hemoglobin Concent 34.7 32-36 g/dl Platelet Count 183 130-400 K/uL Mean Platelet Volume 10.6 7.4-10.4 fL Neutrophils (%) (Auto) 56.0 % Lymphocytes (%) (Auto) 28.7 % Monocytes (%) (Auto) 6.8 % Eosinophils (%) (Auto) 7.2 % Basophils (%) (Auto) 1.1 % Neutrophils # (Auto) 3.57 1.4-6.5 K/uL Lymphocytes # (Auto) 1.83 1.2-3.4 K/uL Monocytes # (Auto) 0.43 0.11-0.59 K/uL Eosinophils # (Auto) 0.46 0-0.5 K/uL Basophils # (Auto) 0.07 0-0.2 K/uL RDW Standard Deviation 40.2 36.4-46.3 fL RDW Coefficient of Variation 11.9 11.5-14.5 % Immature Granulocyte % (Auto) 0.2 % Immature Granulocyte # (Auto) 0.01 0.00-0.02 K/uL Sodium Level 139 136-145 mmol/L Potassium Level 4.1 3.5-5.1 mmol/L Chloride Level 106 98-107 mmol/L Carbon Dioxide Level 26 21-32 mmol/L Anion Gap 6.0 3-11 mmol/L Blood Urea Nitrogen 6 7-18 mg/dl Creatinine 0.57 0.60-1.20 mg/dl Est Creatinine Clear Calc Drug Dose 144.8 ml/min Estimated GFR () > 150.0 Estimated GFR (Non- 131.6 BUN/Creatinine Ratio 10.6 10-20 Random Glucose 88 70-99 mg/dl Calcium Level 8.5 8.5-10.1 mg/dl Total Bilirubin 0.2 0.2-1 mg/dl Aspartate Amino Transf (AST/SGOT) 13 15-37 U/L Alanine Aminotransferase (ALT/SGPT) 16 12-78 U/L Alkaline Phosphatase 70 45-117 U/L Total Protein 6.8 6.4-8.2 gm/dl Albumin 3.0 3.4-5.0 gm/dl Globulin 3.8 2.5-4.0 gm/dl Albumin/Globulin Ratio 0.8 0.9-2
[2017-12-29 15:18] VITALS: BP 131/83; PULSE 90; TEMP 36.4; O2SAT 98
[2017-12-29] MEDS ORDERED: VANCOMYCIN TROUGH ONE (17:30)
--- NOTE | 2017-12-29 18:24 | Pharmacy Progress Note ---
Pharmacy Abx Dose Short Note Date of Service Dec 29, 2017. Assessment & Plan Assessment 22 year old female receiving vancomycin and clindamycin for treatment of facial abscess/cellulitis Day # 3 of vancomycin therapy and day #1 of clindamycin therapy Plan Vancomycin * Trough level of 14.8 mcg/mL is therapeutic - this should be at steady state * Continue dose of 1000 mg IV every 6 hours * Goal trough level for facial abscess/cellulitis with S. aureus (sensitivities pending) : 15 to 20 mcg/mL * Will repeat a trough level in 2-3 days if patient to remain on vancomycin Pharmacy will continue to follow and will adjust dose/frequency as necessary. Thank you.
[2017-12-29 23:58] VITALS: BP 139/85; PULSE 109; TEMP 36.4; O2SAT 98
[2017-12-30] MEDS: MoRPHine SULFATE 2 MG/ML CARP IV PRN (01:41)
[2017-12-30] MEDS: CHLORASEPTIC 1.4% SOLN 180 ML BTL MT PRN (01:44)
[2017-12-30] MEDS ORDERED: BISACODYL 10 MG SUPP PR PRN (02:00)
[2017-12-30] MEDS: CLINDAMYCIN IV 600 MG in DEXTROSE 5% 50ML 50 ML IV SCH ×3 (03:45→20:15)
[2017-12-30] MEDS: VANCOMYCIN INJ 1,000 MG in SODIUM CHLORIDE 0.9% 250ML 250 ML IV SCH ×3 (05:41→17:54)
[2017-12-30 06:31] LABS: HEMATOCRIT 33.8 % (37-47); HEMOGLOBIN 11.7 g/dL (12.0-16.0); IG# 0.02 K/uL (0.00-0.02); LYMPH % 6.7 %; LYMPH ABS # 0.83 K/uL (1.2-3.4); MEAN CELL VOLUME 92.9 fL (80-100); MEAN CORPUSCULAR HEMOGLOBIN 32.1 pg (25-34); MEAN CORPUSCULAR HGB CONC 34.6 g/dl (32-36); MEAN PLATELET VOLUME 10.7 fL (7.4-10.4); MONO ABS # 0.25 K/uL (0.11-0.59); NEUT % 91.1 %; NEUT ABS # 11.21 K/uL (1.4-6.5); PLATELET COUNT 217 K/uL (130-400); RED CELL DISTRIBUTION WIDTH CV 11.7 % (11.5-14.5); RED CELL DISTRIBUTION WIDTH SD 40.3 fL (36.4-46.3); WHITE BLOOD COUNT 12.31 K/uL (4.8-10.8)
--- NOTE | 2017-12-30 06:35 | ENT CONSULTATION ---
DATE OF CONSULTATION: 12/30/2017 The patient was seen in followup of her consultation from yesterday. Since starting Decadron 10 mg IV q. 8 hours as well as clindamycin 600 mg IV q. 8 hours, the patient is clinically improving. She has less pain. She complains of less neck pain and sore throat. She denies any odynophagia or dysphagia. The patient is afebrile and vital signs are stable. There has been a significant decrease in the erythema overlying the right mental region. There is less tenderness to palpation in this area. Neck examination reveals stable cervical lymphadenopathy which is mildly tender. There is no erythema that is tracking into the neck or chest. ASSESSMENT AND RECOMMENDATIONS: A 22-year-old female with right chin/mental cellulitis/abscess, which spontaneously drained and for which is improving on IV antibiotics and steroids. I would recommend another 24 hours of IV antibiotics and steroids and then if she continues to clinically improve to discharge her tomorrow on a regimen of clindamycin 300 mg p.o. q. 6 hours for 14 days and prednisone 30 mg b.i.d. for 2 days, followed by 20 mg b.i.d. for 2 days, followed by 10 mg for 2 days followed by 10 mg daily for 2 days. I will sign off on this consultation, but if you need any further assistance, please do not hesitate to contact me.
[2017-12-30 07:08] LABS: CREATININE 0.48 mg/dl (0.60-1.20)
[2017-12-30 07:44] VITALS: BP 105/71; PULSE 89; TEMP 36.7; O2SAT 96
[2017-12-30] MEDS: DULOXETINE HCL 60 MG CAP PO SCH (07:49)
[2017-12-30] MEDS: MUPIROCIN 2% OINT 22 GM TUBE EXT SCH ×2 (07:49→20:28)
[2017-12-30] MEDS: DEXAMETHASONE INJ 10 MG in SYRINGE 0 ML IV SCH (07:49)
[2017-12-30] MEDS: DOCUSATE SODIUM 100 MG CAP PO SCH ×2 (07:49→20:25)
[2017-12-30] MEDS: OXYCODONE/ACETAMINOPHEN 5-325 TAB PO PRN ×3 (07:56→22:39)
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
[2017-12-30] MEDS: SODIUM CHLORIDE 0.9% 1000ML 1,000 ML IV SCH ×3 (10:45→20:25)
[2017-12-30] MEDS: POLYETHYLENE (MIRALAX) 17 GM PACK PO PRN (12:47)
[2017-12-30] MEDS: ACETAMINOPHEN 325 MG TAB PO PRN (12:48)
[2017-12-30 15:36] VITALS: BP 129/74; PULSE 111; TEMP 36.9; O2SAT 96
--- NOTE | 2017-12-30 16:25 | Progress Note ---
Internal Med Progress Note Date of Service: Dec 30, 2017. Provider Documentation: SUBJECTIVE: Patient reports that induration of the chin has hardened. No further drainage. Patient ambulating but reports weakness of knees OBJECTIVE: General Appearance: no apparent distress Head: normocephalic, atraumatic Eyes: normal inspection, sclerae normal ENT/Face/Neck: hearing grossly normal, pharynx normal, able to open mouth, erythema of the chin with scab from prior drainage, right chin with hardened skin, right neck is less tender today Respiratory/Chest: chest non-tender, lungs clear, normal breath sounds, no respiratory distress, no accessory muscle use Cardiovascular: regular rate, rhythm, no murmur, normal peripheral pulses Abdomen/GI: non tender, soft, + bowel sounds Back: normal inspection Extremities/Musculoskelatal: knees are warm to the touch but no swelling, no calf tenderness, no pedal edema, normal range of motion and strength Neurologic/Psych: no motor/sensory deficits, alert, normal mood/affect, oriented x 3 ASSESSMENT & PLAN: 22-year-old female with right parasymphyseal mandibular soft tissue abscess, which has spontaneously drained on 12/28/17 -ED blood cultures 12/27/17 no growth to date -Patient has been on Vancomycin since hospital admission - continue -patient's induration started draining on 12/28/17 spontaneously, wound culture positive for MRSA -Topical Bacitracin to be applied on chin -Clindamycin added on 12/29/17 as 600 mg IV q8 hours for additional bacterial coverage -ENT evaluation 12/29/17: flexible laryngoscopy was performed due to the patient' s complaints of hypopharyngeal sore throat as well as progression in the setting of facial infection/abscess. The patient's nasopharynx, oropharynx, hypopharynx and larynx were all normal. There is no evidence of laryngeal edema. She had normal bilateral true vocal fold mobility to the midline. -as per ENT, if she does not continue to clinically improve, that can be increased from 600 mg IV q. 8 hours to 900 mg IV q. 8 hours. -ENT started Decadron 10 mg IV q. 8 hours on 12/29/17, to help reduce the soft tissue swelling, stopped Decadron as there is concern whether this is realted to patient's subjective concern for knee weakness despite normal motor exam -Blood culture repeated on 12/30/17 -12/30/17 Infectious disease service asked to evaluated due to the 01/07/18 wound culture from the chin that is positive for MRSA. Dr. Jacobo, infectious disease physician recommends "transition tomorrow to oral clindamycin therapy, likely in the range of 10-14 days depending on clinical response. Discussed with patient the possibility of attempting decolonization after resolution of acute infection, and so would like to see her in the office in 2 weeks to discuss this further" Anxiety/depression stable -Continue home dose Cymbalta DVT Ppx: tenzin whitley Code status: FULL code PCP: Flako Vital Signs: Date Time Temp Pulse Resp B/P (MAP) Pulse Ox O2 Delivery O2 Flow Rate FiO2 12/30/17 16:00 Room Air 12/30/17 15:36 36.9 111 18 129/74 (92) 96 Room Air 12/30/17 08:00 Room Air 12/30/17 07:44 36.7 89 15 105/71 (82) 96 Room Air 12/30/17 00:13 Room Air 12/29/17 23:58 36.4 109 20 139/85 (103) 98 Room Air 12/29/17 19:00 Room Air Lab Results: Results Past 24 Hours Test 12/29/17 17:18 12/30/17 06:16 Range/Units Vancomycin Level Trough 14.8 SEE COMMENT mcg/ml White Blood Count 12.31 4.8-10.8 K/uL Red Blood Count 3.64 4.2-5.4 M/uL Hemoglobin 11.7 12.0-16.0 g/dL Hematocrit 33.8 37-47 % Mean Corpuscular Volume 92.9 80-100 fL Mean Corpuscular Hemoglobin 32.1 25-34 pg Mean Corpuscular Hemoglobin Concent 34.6 32-36 g/dl Platelet Count 217 130-400 K/uL Mean Platelet Volume 10.7 7.4-10.4 fL Neutrophils (%) (Auto) 91.1 % Lymphocytes (%) (Auto) 6.7 % Monocytes (%) (Auto) 2.0 % Eosinophils (%) (Auto) 0.0 % Basophils (%) (Auto) 0.0 % Neutrophils # (Auto) 11.21 1.4-6.5 K/uL Lymphocytes # (Auto) 0.83 1.2-3.4 K/uL Monocytes # (Auto) 0.25 0.11-0.59 K/uL Eosinophils # (Auto) 0.00 0-0.5 K/uL Basophils # (Auto) 0.00 0-0.2 K/uL RDW Standard Deviation 40.3 36.4-46.3 fL RDW Coefficient of Variation 11.7 11.5-14.5 % Immature Granulocyte % (Auto) 0.2 % Immature Granulocyte # (Auto) 0.02 0.00-0.02 K/uL Creatinine 0.48 0.60-1.20 mg/dl Est Creatinine Clear Calc Drug Dose 172.0 ml/min Estimated GFR () > 150.0 Estimated GFR (Non- 139.2 Microbiology Results 12/30/17 Blood Culture, Received Pending 12/30/17 Blood Culture, Received Pending
[2017-12-30] MEDS: SENNA 8.6 MG TAB PO SCH (20:25)
[2017-12-30 23:05] VITALS: BP 127/91; PULSE 80; TEMP 36.4; O2SAT 99
[2017-12-31] MEDS: CLINDAMYCIN IV 600 MG in DEXTROSE 5% 50ML 50 ML IV SCH ×2 (04:05→11:45)
[2017-12-31 06:47] LABS: CREATININE 0.58 mg/dl (0.60-1.20)
[2017-12-31 07:27] VITALS: BP 121/84; PULSE 73; TEMP 36.8; O2SAT 98
[2017-12-31] MEDS: DOCUSATE SODIUM 100 MG CAP PO SCH (07:48)
[2017-12-31] MEDS: DULOXETINE HCL 60 MG CAP PO SCH (07:48)
[2017-12-31] MEDS: SENNA 8.6 MG TAB PO SCH (07:48)
[2017-12-31] MEDS: SODIUM CHLORIDE 0.9% 1000ML 1,000 ML IV SCH (07:49)
[2017-12-31] MEDS: MUPIROCIN 2% OINT 22 GM TUBE EXT SCH (07:49)
[2017-12-31] MEDS: POLYETHYLENE (MIRALAX) 17 GM PACK PO PRN (07:49)
[2017-12-31 15:12] VITALS: BP 113/79; PULSE 88; TEMP 36.7; O2SAT 99
[2017-12-31] MEDS ORDERED: CLIN300C2 PO (15:17)
--- NOTE | 2017-12-31 16:05 | Progress Note ---
Internal Med Progress Note Date of Service: Dec 31, 2017. Provider Documentation: SUBJECTIVE: Patient reports that induration of the chin has hardened. No further drainage. Patient ambulating and reports knee discomfort improved after IV steroids were stopped OBJECTIVE: General Appearance: no apparent distress Head: normocephalic, atraumatic Eyes: normal inspection, sclerae normal ENT/Face/Neck: hearing grossly normal, pharynx normal, able to open mouth, erythema of the chin with scab from prior drainage, right chin with hardened skin, right neck is less tender today Respiratory/Chest: chest non-tender, lungs clear, normal breath sounds, no respiratory distress, no accessory muscle use Cardiovascular: regular rate, rhythm, no murmur, normal peripheral pulses Abdomen/GI: non tender, soft, + bowel sounds Back: normal inspection Extremities/Musculoskelatal: knees are warm to the touch but no swelling, no calf tenderness, no pedal edema, normal range of motion and strength Neurologic/Psych: no motor/sensory deficits, alert, normal mood/affect, oriented x 3 ASSESSMENT & PLAN: 22-year-old female with right parasymphyseal mandibular soft tissue abscess, which has spontaneously drained on 12/28/17. patient's induration started draining on 12/28/17 spontaneously, wound culture positive for MRSA ENT evaluation 12/29/17: flexible laryngoscopy was performed due to the patient's complaints of hypopharyngeal sore throat as well as progression in the setting of facial infection/abscess. The patient's nasopharynx, oropharynx, hypopharynx and larynx were all normal. There is no evidence of laryngeal edema. She had normal bilateral true vocal fold mobility to the midline. ENT started Decadron 10 mg IV q. 8 hours on 12/29/17 and was stopped on 12/30/17 due to concern of leg weakness -ED blood cultures 12/27/17 no growth to date -Topical Bacitracin was applied on chin. Patient was on Vancomycin IV and IV from 12/27/17 to 12/30/17 and Clindamycin IV from 12/29/17 to 12/31/17 during this hospital stay -Blood culture repeated on 12/30/17 12/30/17 Infectious disease service asked to evaluated due to the 01/07/18 wound culture from the chin that is positive for MRSA. Dr. Jacobo, infectious disease physician recommends "transition tomorrow to oral clindamycin therapy, likely in the range of 10-14 days depending on clinical response. Discussed with patient the possibility of attempting decolonization after resolution of acute infection, and so would like to see her in the office in 2 weeks to discuss this further" Discharge to home with prescription for oral clindamycin 01/05/2018 11:00 AM Collin Arriola MD [facility] 01/07/2018 2:30 PM Kailyn Valladares MD Dermatology [facility] Follow up with Dr. Omar Jacobo, Internal medicine - infectious disease, [address], [place] [address] [phone]. Please call to make appointment with Dr. Jacobo Vital Signs: Date Time Temp Pulse Resp B/P (MAP) Pulse Ox O2 Delivery O2 Flow Rate FiO2 12/31/17 15:12 36.7 88 15 113/79 (90) 99 12/31/17 09:00 Room Air 12/31/17 07:27 36.8 73 20 121/84 (96) 98 Room Air 12/31/17 00:11 Room Air 12/30/17 23:05 36.4 80 18 127/91 (103) 99 Room Air 12/30/17 20:45 Room Air Lab Results: Results Past 24 Hours Test 12/31/17 05:57 Range/Units Creatinine 0.58 0.60-1.20 mg/dl Est Creatinine Clear Calc Drug Dose 142.3 ml/min Estimated GFR () > 150.0 Estimated GFR (Non- 130.8
--- NOTE | 2017-12-31 16:22 | Discharge Instructions ---
Discharge Instructions Date of Service Dec 31, 2017. Admission Reason for Admission: Facial Abcess,Facial Cellulitis Discharge Discharge Diagnosis / Problem: facial/mandibular abscess, MRSA Discharge Goals Goal(s): Improve function, Improve disease control Activity Recommendations Activity Limitations: per Instructions/Follow-up section Shower/Bathe: no limitations . Instructions / Follow-Up Instructions / Follow-Up 22-year-old female with right parasymphyseal mandibular soft tissue abscess, which has spontaneously drained on 12/28/17. patient's induration started draining on 12/28/17 spontaneously, wound culture positive for MRSA ENT evaluation 12/29/17: flexible laryngoscopy was performed due to the patient's complaints of hypopharyngeal sore throat as well as progression in the setting of facial infection/abscess. The patient's nasopharynx, oropharynx, hypopharynx and larynx were all normal. There is no evidence of laryngeal edema. She had normal bilateral true vocal fold mobility to the midline. ENT started Decadron 10 mg IV q. 8 hours on 12/29/17 and was stopped on 12/30/17 due to concern of leg weakness -ED blood cultures 12/27/17 no growth to date -Topical Bacitracin was applied on chin. Patient was on Vancomycin IV and IV from 12/27/17 to 12/30/17 and Clindamycin IV from 12/29/17 to 12/31/17 during this hospital stay -Blood culture repeated on 12/30/17 12/30/17 Infectious disease service asked to evaluated due to the 01/07/18 wound culture from the chin that is positive for MRSA. Dr. Jacobo, infectious disease physician recommends "transition tomorrow to oral clindamycin therapy, likely in the range of 10-14 days depending on clinical response. Discussed with patient the possibility of attempting decolonization after resolution of acute infection, and so would like to see her in the office in 2 weeks to discuss this further" Discharge to home with prescription for oral clindamycin 01/05/2018 11:00 AM Collin Arriola MD [facility] 01/07/2018 2:30 PM Kailyn Valladares MD Dermatology [facility] Follow up with Dr. Omar Jacobo, Internal medicine - infectious disease, [facility] [address], [place] [address] [phone]. Please call to make appointment with Dr. Jacobo Current Hospital Diet Patient's current hospital diet: Regular Diet Discharge Diet Recommended Diet: Regular Diet Pending Studies Studies pending at discharge: yes List of pending studies: blood culture 12/30/17 Laboratory Results 12/30/17 06:16 Red Blood Count 3.64, Mean Corpuscular Volume 92.9, Mean Corpuscular Hemoglobin 32.1, Mean Corpuscular Hemoglobin Concent 34.6, Mean Platelet Volume 10.7, Neutrophils (%) (Auto) 91.1, Lymphocytes (%) (Auto) 6.7, Monocytes (%) (Auto) 2.0, Eosinophils (%) (Auto) 0.0, Basophils (%) (Auto) 0.0, Neutrophils # (Auto) 11.21, Lymphocytes # (Auto) 0.83, Monocytes # (Auto) 0.25, Eosinophils # (Auto) 0.00, Basophils # (Auto) 0.00 12/29/17 05:51 12/31/17 05:57 Test 12/27/17 11:06 12/27/17 15:07 12/29/17 05:51 12/29/17 17:18 Bedside Lactic Acid Venous 0.91 mmol/L (0.90-1.70) Human Chorionic Gonadotropin, Qual NEG (NEG) Anion Gap 6.0 mmol/L (3-11) BUN/Creatinine Ratio 10.6 (10-20) Calcium Level 8.5 mg/dl (8.5-10.1) Total Bilirubin 0.2 mg/dl (0.2-1) Aspartate Amino Transf (AST/SGOT) 13 U/L (15-37) Alanine Aminotransferase (ALT/SGPT) 16 U/L (12-78) Alkaline Phosphatase 70 U/L (45-117) Total Protein 6.8 gm/dl (6.4-8.2) Albumin 3.0 gm/dl (3.4-5.0) Globulin 3.8 gm/dl (2.5-4.0) Albumin/Globulin Ratio 0.8 (0.9-2) Vancomycin Level Trough 14.8 mcg/ml (SEE COMMENT) Test 12/30/17 06:16 12/31/17 05:57 White Blood Count 12.31 K/uL (4.8-10.8) Red Blood Count 3.64 M/uL (4.2-5.4) Hemoglobin 11.7 g/dL (12.0-16.0) Hematocrit 33.8 % (37-47) Mean Corpuscular Volume 92.9 fL (80-100) Mean Corpuscular Hemoglobin 32.1 pg (25-34) Mean Corpuscular Hemoglobin Concent 34.6 g/dl (32-36) Platelet Count 217 K/uL (130-400) Mean Platelet Volume 10.7 fL (7.4-10.4) Neutrophils (%) (Auto) 91.1 % Lymphocytes (%) (Auto) 6.7 % Monocytes (%) (Auto) 2.0 % Eosinophils (%) (Auto) 0.0 % Basophils (%) (Auto) 0.0 % Neutrophils # (Auto) 11.21 K/uL (1.4-6.5) Lymphocytes # (Auto) 0.83 K/uL (1.2-3.4) Monocytes # (Auto) 0.25 K/uL (0.11-0.59) Eosinophils # (Auto) 0.00 K/uL (0-0.5) Basophils # (Auto) 0.00 K/uL (0-0.2) RDW Standard Deviation 40.3 fL (36.4-46.3) RDW Coefficient of Variation 11.7 % (11.5-14.5) Immature Granulocyte % (Auto) 0.2 % Immature Granulocyte # (Auto) 0.02 K/uL (0.00-0.02) Est Creatinine Clear Calc Drug Dose 142.3 ml/min Estimated GFR () > 150.0 Estimated GFR (Non- 130.8 Date/Time Source Procedure Growth Status 12/30/17 14:15 Blood Blood Culture Pending Received 12/28/17 14:11 Skin Face , Right Gram Stain - Final Complete 12/28/17 14:11 Wound Culture - Final Staph. Aureus Mrsa Complete Medical Emergencies . Who to Call and When: Medical Emergencies: If at any time you feel your situation is an emergency, please call 911 immediately. . Non-Emergent Contact Non-Emergency issues call your: Primary Care Provider Call Non-Emergent contact if: you have any medication questions . . "Provider Documentation" section prepared by Jon Dasilva. . VTE Core Measure Inpt VTE Proph given/why not?: Argentina Parker
--- NOTE | 2017-12-31 16:23 | Discharge Summary ---
Discharge Summary Date of Service Dec 31, 2017. Discharge Summary Admission Date: Dec 27, 2017 at 13:49 Discharge Date: Dec 31, 2017 Discharge Disposition: Home Principal Diagnosis: facial/mandibular abscess, MRSA Consultations: [facility], Dr. Jacobo Pending Studies/Follow-Up: blood culture 12/30/17 Medication Reconciliation New Medications: Clindamycin Hcl (Cleocin) 300 Mg Cap 300 MG PO QID for 7 Days, #28 CAP Continued Medications: Duloxetine Hcl (Cymbalta) 60 Mg Cap 60 MG PO QAM Norgestimate-Ethinyl Estradiol (Ortho Tri-Cyclen Lo) 1 Tab Tab 1 TAB PO DAILY for 28 Days, #28 TAB 11 Refills Discontinued Medications: Cephalexin Monohydrate (Keflex) 500 Mg Cap 500 MG PO TID FOR 10 DAYS. FILLED 11/25/17 FOR FIRST DOSES Sulfa/Trimethoprim (Bactrim Ds 800MG/160MG) Tab 1 TAB PO BID FOR 10 DAYS. FILLED 11/25/17 FOR FIRST DOSES Admission Information HPI (per Admitting provider): This is a 22yo F with a PMH of depression and anxiety who presents with worsening facial swelling on chin x 3 days. Patient popped a pimple on her chin Wednesday evening and then went to sleep for a few hours. Woke up with right sided facial swelling along her chin and took ibuprofen. Continued to experience facial swelling and throbbing pain on Wednesday and went to see [facility] on Wednesday, where she was diagnosed with facial abscess/cellulitis and started on keflex and bactrim. Continued to experience facial pain and worsening facial swelling overnight, so came to ED for further evaluation. Denies history of skin infections. Denies fever, chills, lightheadedness, headache, visual changes, sore throat, CP, SOB, abdominal pain, nausea, vomiting , dysuria, constipation or diarrhea. Has some pain with swallowing but has maintained her normal PO intake. Denies any respiratory distress 2/2 swelling. Physical Exam (per Admitting): General Appearance: WD/WN, no apparent distress, + pertinent finding ( Sitting upright, watching TV. ) Head: normocephalic, atraumatic Eyes: normal inspection, PERRL, sclerae normal ENT: hearing grossly normal, pharynx normal, + trismus (Unable to open mouth fully 2/2 facial swelling) Neck: supple, thyroid normal, trachea midline Respiratory/Chest: chest non-tender, lungs clear, normal breath sounds, no respiratory distress, no accessory muscle use Cardiovascular: regular rate, rhythm, no murmur, normal peripheral pulses Abdomen/GI: non tender, soft Back: normal inspection Extremities/Musculoskelatal: normal inspection, no calf tenderness, no pedal edema, normal range of motion Neurologic/Psych: no motor/sensory deficits, alert, normal mood/affect, oriented x 3 Skin: normal color, warm/dry, no rash, + pertinent finding (Presence of an indurated lesion on R side of chin with surrounding erythema/edema to submandibular region. Presence of scab. dinkey operator slag intact. ) Hospital Course 22-year-old female with right parasymphyseal mandibular soft tissue abscess, which has spontaneously drained on 12/28/17. patient's induration started draining on 12/28/17 spontaneously, wound culture positive for MRSA ENT evaluation 12/29/17: flexible laryngoscopy was performed due to the patient's complaints of hypopharyngeal sore throat as well as progression in the setting of facial infection/abscess. The patient's nasopharynx, oropharynx, hypopharynx and larynx were all normal. There is no evidence of laryngeal edema. She had normal bilateral true vocal fold mobility to the midline. ENT started Decadron 10 mg IV q. 8 hours on 12/29/17 and was stopped on 12/30/17 due to concern of leg weakness -ED blood cultures 12/27/17 no growth to date -Topical Bacitracin was applied on chin. Patient was on Vancomycin IV and IV from 12/27/17 to 12/30/17 and Clindamycin IV from 12/29/17 to 12/31/17 during this hospital stay -Blood culture repeated on 12/30/17 12/30/17 Infectious disease service asked to evaluated due to the 01/07/18 wound culture from the chin that is positive for MRSA. Dr. Jacobo, infectious disease physician recommends "transition tomorrow to oral clindamycin therapy, likely in the range of 10-14 days depending on clinical response. Discussed with patient the possibility of attempting decolonization after resolution of acute infection, and so would like to see her in the office in 2 weeks to discuss this further" Discharge to home with prescription for oral clindamycin 01/05/2018 11:00 AM Collin Arriola MD [facility] 01/07/2018 2:30 PM Kailyn Valladares MD Dermatology [facility] Follow up with Dr. Omar Jacobo, Internal medicine - infectious disease, [address], [place] [address] [phone]. Please call to make appointment with Dr. Jacobo Total time spent on discharge = This includes examination of the patient, discharge planning, medication reconciliation, and communication with other providers. Discharge Instructions see above
[2017-12-31 16:42] VITALS: BP 113/79; PULSE 88; TEMP 36.7; O2SAT 99
== END 2017-12-31 17:00 | disposition home or self-care (01) | DRG 603 ==
LOC: C.EDB 09:15 → C.4E 13:49 → ENRESERV 14:09
PROVIDERS: ADMIT Family Medicine; ATTEND Hospitalist
DX: L02.01 Cutaneous abscess of face (principal); F41.8 Other specified anxiety disorders; F17.210 Nicotine dependence, cigarettes, uncomplicated; B95.62 Methicillin resistant Staphylococcus aureus infection as the cause of diseases classified elsewhere; Z88.0 Allergy status to penicillin

== ENCOUNTER → 2018-03-03 | Day surgery (SDC) | payer OTHER ==
[~2018-03-03] VITALS: Ht 170.2 cm; Wt 70.0 kg
[~2018-03-03] MED LIST changes: -BCPILLS PO; +COSYNTROPIN INJ 250 MCG in SYRINGE 4 ML IV SCH; +DULO60CA44 PO; +NORGTAB39 PO
[2018-03-03 07:44] VITALS: BP 123/82; PULSE 86; TEMP 36.8; O2SAT 98; Ht 170.2 cm; Wt 70.0 kg
[2018-03-03 08:30] VITALS: BP 107/65; PULSE 80; TEMP 36.8; O2SAT 100
[2018-03-03 08:48] LABS: CALCIUM 8.9 mg/dl (8.5-10.1); CREATININE 0.74 mg/dl (0.60-1.20); POTASSIUM 3.5 mmol/L (3.5-5.1)
[2018-03-03 08:57] LABS: TOTAL PROTEIN 7.4 gm/dl (6.4-8.2)
[2018-03-06 12:29] LABS: MICROSOMAL AB <1 IU/ML (<9); TESTOSTERONE,TOTAL 29 ng/dL (2-45)
== END | disposition home or self-care (01) ==
LOC: C.MTU 07:28
PROVIDERS: ATTEND Internal Medicine Endocrinology, Diabetes & Metabolism
DX: E28.2 Polycystic ovarian syndrome (principal)

== ENCOUNTER → 2018-03-08 | Outpatient (CLI) | payer OTHER ==
[~2018-03-08] MED LIST changes: -COSYNTROPIN INJ 250 MCG in SYRINGE 4 ML IV SCH; -NORGTAB39 PO
--- NOTE | 2018-03-08 11:01 | DIAGNOSTIC IMAGING REPORT ---
PELVIC COMPLETE NON OB CLINICAL HISTORY: 22 years-old Female presenting with E28.2 PCOS (polycystic ovarian syndrome), G0, P0, last menstrual period 1 week ago, no contraceptive, left-sided pelvic pain. TECHNIQUE: Real-time grayscale and color and spectral Doppler ultrasound imaging of the pelvis was performed first using a transabdominal probe and subsequently transvaginal for better characterization. COMPARISON: None. FINDINGS: Uterus: Normal. Retroverted. The uterus measures 7.0 x 3.9 x 3.3 cm. Endometrial stripe measures 6 mm in thickness. Endometrium normal-appearing. Cervix normal. Right adnexa: Right ovary contains numerous follicles (up to 10 primarily peripheral follicles measuring less than 10 mm on a single image).. Right ovary measures 3.8 x 2.9 x 2.3 cm. Normal color Doppler flow and arterial and venous waveforms within the ovarian parenchyma. Left adnexa: Left ovary enlarged by a dominant follicle with a cumulus oophorus. Left ovary measures 5.5 x 4.4 x 3.1 cm. Normal color Doppler flow and arterial and venous waveforms within the ovarian parenchyma. Other: Trace free fluid in the right adnexa and cul-de-sac, likely physiologic. IMPRESSION: 1. Left ovary with a cumulus oophorus pattern implying eminent ovulation. 2. Multiple ovarian follicles best demonstrated in the right ovary. 3. No ovarian torsion. Electronically signed by: Daniel Coyne M.D. 03/08/2018 11:00 AM Dictated Date/Time: 03/08/2018 10:54 AM
== END | disposition home or self-care (01) ==
LOC: C.ULTR 09:25
PROVIDERS: ATTEND Internal Medicine Endocrinology, Diabetes & Metabolism
DX: E28.2 Polycystic ovarian syndrome (principal)